=== PATIENT | male | born 1965 | race Caucasian/White ===

== ENCOUNTER 2019-10-25 22:53 | Observation (INO) | payer OTHER ==
[2019-10-25] MEDS ORDERED: SODIUM CHLORIDE 0.9% 1,000 ML IV STA ×2 (23:22)
[2019-10-25] MEDS ORDERED: METOCLOPRAMIDE 5 MG/ML 2 ML VIAL IVP STA (23:22)
[2019-10-25] MEDS ORDERED: diphenhydrAMINE 50 MG/ML 1 ML VIAL IVP STA (23:22)
[2019-10-25] MEDS ORDERED: KETOROLAC 15 MG/ML 1 ML VIAL IVP STA (23:22)
[2019-10-25 23:52] LABS: Basophils # (A) 0.1 k/uL (0-0.2); Basophils % (A) 0 %; Eosinophils % (A) 0 %; Lymphocytes # (A) 0.9 k/uL (1.0-4.8); Lymphocytes % (A) 6 %; MCH 30.8 pg (25.0-35.0); MCHC 33.5 g/dL (31.0-37.0); MCV 92.2 fL (80.0-100.0); Mean Platelet Volume 8.1; Monocytes # (A) 0.5 k/uL (0-1.0); Monocytes % (A) 3 %; Neutrophils # (A) 14.2 k/uL (1.3-7.7); Neutrophils % (A) 90 %; Platelet Count 272 k/uL (150-450); RBC 6.37 m/uL (4.30-5.90); RDW 13.1 % (11.5-15.5); WBC 15.7 k/uL (3.8-10.6)
[2019-10-26 00:01] LABS: Appearance,Urine Clear (Clear); Bilirubin,Urine Negative (Negative); Blood,Urine Trace (Negative); Color,Urine Light Yellow; Glucose,Urine (UA) Negative (Negative); Ketones,Urine 2+ (Negative); Leukocyte Esterase,Urine Negative (Negative); Nitrite,Urine Negative (Negative); Protein,Urine Negative (Negative); RBC,Urine 6 /hpf (0-5); Squamous Epithelial Cell,Urine <1 /hpf (0-4); Urobilinogen,Urine <2.0 mg/dL (<2.0); WBC,Urine 1 /hpf (0-5)
[2019-10-26 00:03] LABS: ALT 31 U/L (4-49); AST 34 U/L (17-59); African American GFR (CKD) >90 (>60 ml/min/1.73 sqM); Alkaline Phosphatase 80 U/L (38-126); Anion Gap 9 mmol/L; Blood Urea Nitrogen 9 mg/dL (9-20); Calcium 8.8 mg/dL (8.4-10.2); Carbon Dioxide 22 mmol/L (22-30); Chloride 109 mmol/L (98-107); Glucose 122 mg/dL (74-99); Non-African American GFR(CKD) >90 (>60 ml/min/1.73 sqM); Potassium 4.4 mmol/L (3.5-5.1); Sodium 140 mmol/L (137-145); Total Bilirubin 1.1 mg/dL (0.2-1.3); Total Protein 7.2 g/dL (6.3-8.2)
[2019-10-26 00:12] LABS: Specific Gravity,Urine 1.049 (1.001-1.035)
[2019-10-26 00:15] LABS: HCT 58.7 % (39.0-53.0); HGB 19.7 gm/dL (13.0-17.5)
--- NOTE | 2019-10-26 00:37 | ED ---
Abdominal Pain HPI - General Chief Complaint: Abdominal Pain Stated Complaint: abd pain Time Seen by Provider: 10/25/19 22:58 Source: patient, EMS, RN notes reviewed, old records reviewed Limitations: no limitations - History of Present Illness Initial Comments: Patient is a 54-year-old male transferred for from a [facility] with complaints of vomiting, diarrhea and diffuse abdominal pain for the past day. Patient was seen in [facility] and was noted to have elevated white blood cell count of 18.6. Hemoglobin of 21.5. Blood sugar of 202. AST 50 8T of 46. Bilirubin 1.8. Patient had a computed tomography scan of them pelvis which showed colitis. A 1.7 cm nodule in the right kidney which had increased from previous computed tomography scan. Also there is gallbladder wall appeared mildly thickened may reflect lack of distention versus motion artifact. No. Holosystolic fluid. There is one gallstone. Ultrasound was reported may be helpful. states that since receiving nausea medicine at the other hospital he's been feeling somewhat better but still complains of diffuse abdominal pain. He states it is cramping in nature. He also complaining of a mild headache. - Related Data Home Medications Medication Instructions Recorded Confirmed Omeprazole [PriLOSEC] 20 mg PO DAILY 12/18/15 12/18/15 Previous Rx's Medication Instructions Recorded HYDROcodone/APAP 10-325MG [[place] 1 tab PO Q6H PRN #20 tab 12/21/15 10-325] Sulfamethox-Tmp 800-160Mg [Bactrim 1 tab PO BID@0600,1800 #20 tab 12/21/15 DS 800-160 mg] traMADol HCl [Ultram] 100 mg PO Q6HR PRN #30 tab 12/21/15 Allergies Allergy/AdvReac Type Severity Reaction Status Date / Time flu vaccines AdvReac Rash/Hives Uncoded 10/25/19 23:00 Review of Systems ROS Statement: Those systems with pertinent positive or pertinent negative responses have been documented in the HPI. ROS Other: All systems not noted in ROS Statement are negative. Past Medical History Past Medical History: No Reported History History of Any Multi-Drug Resistant Organisms: MRSA Date of last positivie culture/infection: 12/20/15 MDRO Source:: face Past Surgical History: No Surgical Hx Reported Past Psychological History: No Psychological Hx Reported Smoking Status: Current every day smoker Past Alcohol Use History: None Reported Past Drug Use History: Marijuana - Past Family History Father History Unknown: Yes General Exam - General Exam Comments Initial Comments: 54-year-old male. Alert and oriented 3. No significant distress. Limitations: no limitations General appearance: alert Head exam: Present: atraumatic Eye exam: Present: normal appearance, PERRL, EOMI. Absent: scleral icterus, conjunctival injection, periorbital swelling ENT exam: Present: normal exam, mucous membranes moist Neck exam: Present: normal inspection. Absent: tenderness, meningismus, lymphadenopathy Respiratory exam: Present: normal lung sounds bilaterally. Absent: respiratory distress, wheezes, rales, rhonchi, stridor Cardiovascular Exam: Present: regular rate, normal rhythm, normal heart sounds. Absent: systolic murmur, diastolic murmur, rubs, gallop, clicks GI/Abdominal exam: Present: soft, tenderness (Diffuse tenderness), normal bowel sounds. Absent: distended, guarding, rebound, rigid Extremities exam: Present: normal inspection, full ROM, normal capillary refill. Absent: tenderness, pedal edema, joint swelling, calf tenderness Back exam: Present: normal inspection Course Vital Signs 10/25/19 10/25/19 22:54 23:47 Temperature 99.5 F Pulse Rate 81 72 Respiratory 18 18 Rate Blood Pressure 145/82 127/74 O2 Sat by Pulse 98 97 Oximetry Procedures - [place] Protocol (Time Out) Nurse: Meri Dumont Medical Decision Making - Medical Decision Making 54-year-old male presents with 1 day of diarrhea vomiting abdominal pain. He was a transfer from [facility]. Was found to be with leukocytosis of 18.6. A computed tomography scan showed some mild colitis. Repeat labs shows white count is now decreasing. He was given Rocephin and Flagyl already. On reevaluation he states his pain is improved after some Toradol as well as his previous IV pain medication. At this time Patient will be admitted for IV hydration, continuing Rocephin and Flagyl for colitis might possible gallbladder ultrasound in the morning for further evaluation. - Lab Data Result diagrams: 10/25/19 23:38 10/25/19 23:38 Lab Results 10/25/19 10/25/19 10/25/19 Range/Units 23:38 23:38 23:38 WBC 15.7 H (3.8-10.6) k/uL RBC 6.37 H (4.30-5.90) m/uL Hgb 19.7 H* (13.0-17.5) gm/dL Hct 58.7 H* (39.0-53.0) % MCV 92.2 (80.0-100.0) fL MCH 30.8 (25.0-35.0) pg MCHC 33.5 (31.0-37.0) g/dL RDW 13.1 (11.5-15.5) % Plt Count 272 (150-450) k/uL Neutrophils % 90 % Lymphocytes % 6 % Monocytes % 3 % Eosinophils % 0 % Basophils % 0 % Neutrophils # 14.2 H (1.3-7.7) k/uL Lymphocytes # 0.9 L (1.0-4.8) k/uL Monocytes # 0.5 (0-1.0) k/uL Eosinophils # 0.0 (0-0.7) k/uL Basophils # 0.1 (0-0.2) k/uL Sodium 140 (137-145) mmol/L Potassium 4.4 (3.5-5.1) mmol/L Chloride 109 H (98-107) mmol/L Carbon Dioxide 22 (22-30) mmol/L Anion Gap 9 mmol/L BUN 9 (9-20) mg/dL Creatinine 0.85 (0.66-1.25) mg/dL Est GFR (CKD-EPI)AfAm >90 (>60 ml/min/1.73 sqM) Est GFR (CKD-EPI)NonAf >90 (>60 ml/min/1.73 sqM) Glucose 122 H (74-99) mg/dL Calcium 8.8 (8.4-10.2) mg/dL Total Bilirubin 1.1 (0.2-1.3) mg/dL AST 34 (17-59) U/L ALT 31 (4-49) U/L Alkaline Phosphatase 80 (38-126) U/L Total Protein 7.2 (6.3-8.2) g/dL Albumin 4.0 (3.5-5.0) g/dL Urine Color Light Yellow Urine Appearance Clear (Clear) Urine pH 8.0 (5.0-8.0) Ur Specific [place] 1.049 H (1.001-1.035) Urine Protein Negative (Negative) Urine Glucose (UA) Negative (Negative) Urine Ketones 2+ H (Negative) Urine Blood Trace H (Negative) Urine Nitrite Negative (Negative) Urine Bilirubin Negative (Negative) Urine Urobilinogen <2.0 (<2.0) mg/dL Ur Leukocyte Esterase Negative (Negative) Urine RBC 6 H (0-5) /hpf Urine WBC 1 (0-5) /hpf Ur Squamous Epith Cells <1 (0-4) /hpf - Radiology Data Radiology results: report reviewed Reviewed outpatient CT and [facility]. Impression: Wall the entire colon is thickened but not glass. This appearance. Lactic lack of distention however mild diffuse colitis cannot be excluded. No abscess or free air. There is indeterminate 1.7 cm hyperdense nodule in the posterior upper right kidney with Hounsfield units measuring of 67. This is increased from 1.3cm previously. This is concerning for renal cell carcinoma. Recommended MR without and with contrast CT. The gallbladder wall appeared mildly thickened may reflect lack of distention versus motion artifact. No ruthie-coleslaw fluid. One gallstone noted. Ultrasound may be helpful to further evaluate the gallbladder. Disposition Clinical Impression: Colitis, Intractable abdominal pain Disposition: ADMITTED IP TO THIS HOSP Condition: Stable Is patient prescribed a controlled substance at d/c from ED?: No Referrals: Brandan Rosales DO [Primary Care Provider] - 1-2 days Time of Disposition: 00:37
[2019-10-26] MEDS ORDERED: NALOXONE 0.4 MG/ML 1 ML VIAL IV PRN (00:38)
[2019-10-26] MEDS ORDERED: ACETAMINOPHEN TAB 325 MG TAB PO PRN (00:38)
[2019-10-26] MEDS ORDERED: IBUPROFEN 400 MG TAB PO PRN (00:38)
[2019-10-26] MEDS ORDERED: ONDANSETRON 4 MG/2 ML VIAL IVP PRN (00:38)
[2019-10-26] MEDS: SODIUM CHLORIDE 0.9% 1,000 ML IV SCH ×3 (00:58→23:23)
[2019-10-26] MEDS: MORPHINE SULFATE 4 MG/ML SYRINGE IV PRN ×6 (02:53→22:40)
[2019-10-26] MEDS: metroNIDAZOLE-NS PMX 500 MG in SALINE 1 100ML.BAG IVPB SCH ×3 (08:54→23:23)
[2019-10-26] MEDS: KETOROLAC 15 MG/ML 1 ML VIAL IVP PRN ×2 (09:01→20:05)
--- NOTE | 2019-10-26 13:25 | P.HPIM ---
History of Present Illness 54-year-old male was transferred from [facility] after he presented there with nausea vomiting diarrhea nausea vomiting diarrhea improved patient was comparing of diffuse abdominal pain 9/10 in severity which improved with the pain medications patient cannot localize where the pain is. Although patient had a computed tomography scan of the abdomen which showed colitis along with the 1.7 cm nodule in the right kidney and the possibility of thickened gallbladder patient does have pain in the right upper quadrant as well. There was 1 gallstones evident on the CAT scan as per the report. Patient was started on some ceftriaxone and metronidazole subsequently admitted here Review of Systems REVIEW OF SYSTEMS: CONSTITUTIONAL: No fever, no malaise, no fatigue. HEENT: No recent visual problems or hearing problems. Denied any sore throat. CARDIOVASCULAR: No chest pain, orthopnea, PND, no palpitations, no syncope. PULMONARY: No shortness of breath, no cough, no hemoptysis. GASTROINTESTINAL: As mentioned in HPI NEUROLOGICAL: No headaches, no weakness, no numbness. HEMATOLOGICAL: Denies any bleeding or petechiae. GENITOURINARY: Denies any burning micturition, frequency, or urgency. MUSCULOSKELETAL/RHEUMATOLOGICAL: Denies any joint pain, swelling, or any muscle pain. ENDOCRINE: Denies any polyuria or polydipsia. The rest of the 14-point review of systems is negative. Past Medical History Past Medical History: No Reported History History of Any Multi-Drug Resistant Organisms: MRSA Date of last positivie culture/infection: 12/20/15 MDRO Source:: face Past Surgical History: No Surgical Hx Reported Past Psychological History: No Psychological Hx Reported Smoking Status: Current every day smoker Past Alcohol Use History: None Reported Past Drug Use History: Marijuana - Past Family History Father History Unknown: Yes Medications and Allergies Home Medications Medication Instructions Recorded Confirmed Type No Known Home Medications 10/26/19 10/26/19 History Allergies Allergy/AdvReac Type Severity Reaction Status Date / Time flu vaccines AdvReac Rash/Hives Uncoded 10/26/19 09:12 Physical Exam Vitals: Vital Signs Temp Pulse Pulse Resp BP BP Pulse Ox 10/26/19 08:34 97.8 F 60 104/54 92 L 10/26/19 02:00 98.3 F 64 17 98 10/26/19 00:54 68 18 123/70 96 10/25/19 23:47 72 18 127/74 97 10/25/19 22:54 99.5 F 81 18 145/82 98 Intake and Output 10/25/19 10/26/19 10/26/19 22:59 06:59 14:59 Other: # Voids 1 Weight 65.771 kg 65.771 kg PHYSICAL EXAMINATION: GENERAL: The patient is alert and oriented x3, not in any acute distress. Well developed, well nourished. HEENT: Pupils are round and equally reacting to light. EOMI. No scleral icterus. No conjunctival pallor. Normocephalic, atraumatic. No pharyngeal erythema. No thyromegaly. CARDIOVASCULAR: S1 and S2 present. No murmurs, rubs, or gallops. PULMONARY: Fairly good air entry mild expiratory wheezing ABDOMEN: Soft, nontender, nondistended, normoactive bowel sounds. No palpable organomegaly. MUSCULOSKELETAL: No joint swelling or deformity. EXTREMITIES: No cyanosis, clubbing, or pedal edema. NEUROLOGICAL: Gross neurological examination did not reveal any focal deficits. SKIN: No rashes. Results CBC & Chem 7: 10/25/19 23:38 10/25/19 23:38 Labs: Abnormal Lab Results - Last 24 Hours (Table) 10/25/19 10/25/19 10/25/19 Range/Units 23:38 23:38 23:38 WBC 15.7 H (3.8-10.6) k/uL RBC 6.37 H (4.30-5.90) m/uL Hgb 19.7 H* (13.0-17.5) gm/dL Hct 58.7 H* (39.0-53.0) % Neutrophils # 14.2 H (1.3-7.7) k/uL Lymphocytes # 0.9 L (1.0-4.8) k/uL Chloride 109 H (98-107) mmol/L Glucose 122 H (74-99) mg/dL Ur Specific [place] 1.049 H (1.001-1.035) Urine Ketones 2+ H (Negative) Urine Blood Trace H (Negative) Urine RBC 6 H (0-5) /hpf Thrombosis Risk Factor Assmnt - Choose All That Apply Each Factor Represents 1 point: Age 41-60 years Other Risk Factors: No Thrombosis Risk Factor Assessment Total Risk Factor Score: 1 Thrombosis Risk Factor Assessment Level: Low Risk Assessment and Plan Plan: -Possible colitis for which patient was on antibiotics which will be continued -Possibly of cholelithiasis and cholecystitis and surgery was consulted and ultrasound of the right upper quadrant. -COPD with possible mild acute exacerbation nicotine cessation counseling was provided and patient will be started on inhaled steroids inhalational treatments -Continued nicotine use: Counseling was provided -GI prophylaxis with Protonix
[2019-10-26] MEDS: PANTOPRAZOLE 40 MG/10 ML VIAL IVP SCH (14:59)
[2019-10-26] MEDS: IPRATROPIUM-ALBUTEROL 3 ML NEB INHALATION PRN (15:35)
--- NOTE | 2019-10-26 15:37 | P.GSCN ---
History of Present Illness Consult date: 10/26/19 Reason for Consult: Abdominal pain History of present illness: This a 54-year-old male was admitted to the medical service. Patient presented through the emergency room with abdominal pain. Apparently been treated for colitis. Patient states his pain is improved. Patient had a ultrasound performed which showed a 1 cm gallstone in the gallbladder. Past Medical History Past Medical History: No Reported History History of Any Multi-Drug Resistant Organisms: MRSA Year Discovered:: 12/20/15 MDRO Source:: face Past Surgical History: No Surgical Hx Reported Past Psychological History: No Psychological Hx Reported Smoking Status: Current every day smoker Past Alcohol Use History: None Reported Past Drug Use History: Marijuana - Past Family History Father History Unknown: Yes Medications and Allergies Home Medications Medication Instructions Recorded Confirmed Type No Known Home Medications 10/26/19 10/26/19 History Allergies Allergy/AdvReac Type Severity Reaction Status Date / Time flu vaccines AdvReac Rash/Hives Uncoded 10/26/19 09:12 Surgical - Exam Vital Signs Temp Pulse Resp BP Pulse Ox 99.5 F 81 18 145/82 98 10/25/19 22:54 10/25/19 22:54 10/25/19 22:54 10/25/19 22:54 10/25/19 22:54 - General well developed, well nourished, no distress - Eyes PERRL - ENT normal pinna - Neck no masses - Respiratory normal expansion - Cardiovascular Rhythm: regular - Abdomen Abdomen: soft, non tender Results - Labs 10/25/19 23:38 10/25/19 23:38 Abnormal Lab Results - Last 24 Hours (Table) 10/25/19 10/25/19 10/25/19 Range/Units 23:38 23:38 23:38 WBC 15.7 H (3.8-10.6) k/uL RBC 6.37 H (4.30-5.90) m/uL Hgb 19.7 H* (13.0-17.5) gm/dL Hct 58.7 H* (39.0-53.0) % Neutrophils # 14.2 H (1.3-7.7) k/uL Lymphocytes # 0.9 L (1.0-4.8) k/uL Chloride 109 H (98-107) mmol/L Glucose 122 H (74-99) mg/dL Ur Specific [place] 1.049 H (1.001-1.035) Urine Ketones 2+ H (Negative) Urine Blood Trace H (Negative) Urine RBC 6 H (0-5) /hpf Diabetes panel 10/25/19 Range/Units 23:38 Sodium 140 (137-145) mmol/L Potassium 4.4 (3.5-5.1) mmol/L Chloride 109 H (98-107) mmol/L Carbon Dioxide 22 (22-30) mmol/L BUN 9 (9-20) mg/dL Creatinine 0.85 (0.66-1.25) mg/dL Glucose 122 H (74-99) mg/dL Calcium 8.8 (8.4-10.2) mg/dL AST 34 (17-59) U/L ALT 31 (4-49) U/L Alkaline Phosphatase 80 (38-126) U/L Total Protein 7.2 (6.3-8.2) g/dL Albumin 4.0 (3.5-5.0) g/dL Calcium panel 10/25/19 Range/Units 23:38 Calcium 8.8 (8.4-10.2) mg/dL Albumin 4.0 (3.5-5.0) g/dL Pituitary panel 10/25/19 Range/Units 23:38 Sodium 140 (137-145) mmol/L Potassium 4.4 (3.5-5.1) mmol/L Chloride 109 H (98-107) mmol/L Carbon Dioxide 22 (22-30) mmol/L BUN 9 (9-20) mg/dL Creatinine 0.85 (0.66-1.25) mg/dL Glucose 122 H (74-99) mg/dL Calcium 8.8 (8.4-10.2) mg/dL Adrenal panel 10/25/19 Range/Units 23:38 Sodium 140 (137-145) mmol/L Potassium 4.4 (3.5-5.1) mmol/L Chloride 109 H (98-107) mmol/L Carbon Dioxide 22 (22-30) mmol/L BUN 9 (9-20) mg/dL Creatinine 0.85 (0.66-1.25) mg/dL Glucose 122 H (74-99) mg/dL Calcium 8.8 (8.4-10.2) mg/dL Total Bilirubin 1.1 (0.2-1.3) mg/dL AST 34 (17-59) U/L ALT 31 (4-49) U/L Alkaline Phosphatase 80 (38-126) U/L Total Protein 7.2 (6.3-8.2) g/dL Albumin 4.0 (3.5-5.0) g/dL Assessment and Plan Assessment: History of colitis. Patient will be observed currently. We'll plan for outpatient laparoscopic cholecystectomy.
--- NOTE | 2019-10-26 16:08 | US ---
EXAMINATION TYPE: US gallbladder DATE OF EXAM: 10/26/2019 COMPARISON: CT 10/25/19 CLINICAL HISTORY: 54-year-old male Cholecystitis. TECHNIQUE: Multiple sonographic images of the right upper quadrant are obtained. FINDINGS: EXAM MEASUREMENTS: Liver Length: 14.8 cm Gallbladder Wall: 0.2 cm CBD: 0.4 cm Right Kidney: 11.9 x 5.9 x 5.5 cm Pancreas: Only a small portion of the pancreatic neck is visualized and shows no gross abnormality. Remainder is obscured by bowel gas shadowing. Liver: No focal lesion. Gallbladder: with a large 2.0 cm shadowing gallstone. There is no gallbladder hydrops, wall thickeni ng, or surrounding fluid seen. Evidence for sonographic Allen's sign: Yes CBD: wnl Right Kidney: No hydronephrosis or masses seen IMPRESSION: 1. Equivocal for cholecystitis given a large 2.0 cm gallstone and positive sonographic Allen's sign. However, there is no significant wall thickening or gallbladder hydrops. HIDA scan if clinically ind icated. 2. No biliary ductal dilatation.
[2019-10-26] MEDS: BUDESONIDE 0.5 MG/2 ML NEBU INHALATION SCH (19:47)
[2019-10-27] MEDS: MORPHINE SULFATE 4 MG/ML SYRINGE IV PRN ×4 (02:21→13:22)
[2019-10-27] MEDS: SODIUM CHLORIDE 0.9% 1,000 ML IV SCH (06:55)
[2019-10-27] MEDS: IPRATROPIUM-ALBUTEROL 3 ML NEB INHALATION PRN ×2 (07:40→11:58)
[2019-10-27] MEDS: BUDESONIDE 0.5 MG/2 ML NEBU INHALATION SCH (07:40)
[2019-10-27 08:32] VITALS: BP 118/64; RESP 16; TEMP 97.8
[2019-10-27] MEDS: PANTOPRAZOLE 40 MG/10 ML VIAL IVP SCH (08:38)
[2019-10-27] MEDS: metroNIDAZOLE-NS PMX 500 MG in SALINE 1 100ML.BAG IVPB SCH (09:25)
--- NOTE | 2019-10-27 10:55 | P.PN ---
Subjective Progress Note Date: 10/27/19 CHIEF COMPLAINT: Abdominal pain HISTORY OF PRESENT ILLNESS: Patient is currently hospitalized for colitis. He remains on IV antibiotics. He still reporting diffuse abdominal pain. He did have an ultrasound that showed a gallstone in the gallbladder. He denies any nausea or vomiting. He reports bowel movements. Afebrile. He is tolerating low-fat diet. PHYSICAL EXAM: VITAL SIGNS: Reviewed. GENERAL: Well-developed in no acute distress. HEENT: No sclera icterus. Extraocular movements grossly intact. Moist buccal mucosa. Head is atraumatic, normocephalic. ABDOMEN: Soft. Nondistended. Tenderness right upper quadrant and right lower abdomen NEUROLOGIC: Alert and oriented. Cranial nerves II through XII grossly intact. ASSESSMENT: 1. Acute colitis 2. Cholelithiasis PLAN: -We will continue to observe patient -Continue antibiotics for colitis -Planning for outpatient laparoscopic cholecystectomy Physician [employer] Manager note has been reviewed by physician. Signing provider agrees with the documented findings, assessment, and plan of care. Objective - Vital Signs Vital signs: Vital Signs Temp 97.8 F 10/27/19 08:30 Pulse 74 10/27/19 08:30 Resp 16 10/27/19 08:30 BP 118/64 10/27/19 08:30 Pulse Ox 94 L 10/27/19 08:30 Intake & Output 10/26/19 10/27/19 10/27/19 18:59 06:59 18:59 Other: Voiding Method Toilet Toilet # Voids 2 1 - Labs CBC & Chem 7: 10/25/19 23:38 10/25/19 23:38
[2019-10-27 12:13] VITALS: PULSE 78
[2019-10-27 13:07] LABS: African American GFR (CKD) >90 (>60 ml/min/1.73 sqM); Anion Gap 6 mmol/L; Blood Urea Nitrogen 9 mg/dL (9-20); Calcium 8.1 mg/dL (8.4-10.2); Carbon Dioxide 24 mmol/L (22-30); Chloride 108 mmol/L (98-107); Glucose 116 mg/dL (74-99); Non-African American GFR(CKD) >90 (>60 ml/min/1.73 sqM); Potassium 3.2 mmol/L (3.5-5.1); Sodium 138 mmol/L (137-145)
[2019-10-27 13:10] LABS: HCT 51.3 % (39.0-53.0); MCH 29.9 pg (25.0-35.0); MCHC 32.4 g/dL (31.0-37.0); MCV 92.3 fL (80.0-100.0); Mean Platelet Volume 7.5; Platelet Count 237 k/uL (150-450); RBC 5.55 m/uL (4.30-5.90); RDW 13.4 % (11.5-15.5); WBC 12.9 k/uL (3.8-10.6)
[2019-10-27 13:18] LABS: HGB 16.6 gm/dL (13.0-17.5)
[2019-10-27] MEDS ORDERED: POTASSIUM CHLORIDE ER 20 MEQ TAB.ER PO STA (14:07)
--- NOTE | 2019-10-27 14:13 | P.DS ---
Providers Date of admission: 10/26/19 00:44 Attending physician: Omid Waldron Consults: 10/26/19 12:57 Consult Physician Routine Consulting Provider: Osvaldo Ramos Consult Reason/Comments: Abdominal Pain, Cholelithiasis Do you want consulting provider notified?: Yes Primary care physician: Brandan Crain [facility] Course: 54-year-old male was transferred from [facility] after he presented there with nausea vomiting diarrhea nausea vomiting diarrhea improved patient was comparing of diffuse abdominal pain 9/10 in severity which improved with the pain medications patient cannot localize where the pain is. Although patient had a computed tomography scan of the abdomen which showed colitis along with the 1.7 cm nodule in the right kidney and the possibility of thickened gallbladder patient does have pain in the right upper quadrant as well. There was 1 gallstones evident on the CAT scan as per the report. Patient was started on some ceftriaxone and metronidazole subsequently admitted here. 10/27/2019 She is still having some abdominal pain yesterday surgery evaluated the patient patient the will follow with general surgery for outpatient cholecystectomy patient is able to tolerate diet pain although improved abdomen is soft patient will be discharged on Ceftin and the metronidazole patient was severely dehydrated which improved now patient was hemoconcentrated hemoglobin normalized white blood cell count has come down PHYSICAL EXAMINATION: GENERAL: The patient is alert and oriented x3, not in any acute distress. Well developed, well nourished. HEENT: Pupils are round and equally reacting to light. EOMI. No scleral icterus. No conjunctival pallor. Normocephalic, atraumatic. No pharyngeal erythema. No thyromegaly. CARDIOVASCULAR: S1 and S2 present. No murmurs, rubs, or gallops. PULMONARY: Chest is clear to auscultation, no wheezing or crackles. ABDOMEN: Soft, nontender, nondistended, normoactive bowel sounds. No palpable organomegaly. MUSCULOSKELETAL: No joint swelling or deformity. EXTREMITIES: No cyanosis, clubbing, or pedal edema. NEUROLOGICAL: Gross neurological examination did not reveal any focal deficits. SKIN: No rashes. -Possible infectious colitis for which patient will be discharged on antibiotics -Severe dehydration improved -Elevated hematocrit secondary to dehydration and intravascular depletion -Cholelithiasis: Neurosurgery valid the patient follow-up as an outpatient for outpatient cholecystectomy -Nicotine abuse: Counseling was provided Patient Condition at Discharge: Stable Plan - Discharge Summary New Discharge Prescriptions: New Cefuroxime Axetil [Ceftin] 500 mg PO BID 7 Days #14 tab metroNIDAZOLE [Flagyl] 500 mg PO TID #21 tab HYDROcodone/APAP 7.5-325MG [[place] 7.5-325] 1 tab PO Q4H PRN #18 tab PRN Reason: Pain traMADol HCL [Ultram] 50 mg PO Q6HR PRN 3 Days #12 tab PRN Reason: Pain Discharge Medication List Cefuroxime Axetil [Ceftin] 500 mg PO BID 7 Days #14 tab 10/27/19 [Rx] HYDROcodone/APAP 7.5-325MG [[place] 7.5-325] 1 tab PO Q4H PRN #18 tab 10/27/19 [Rx] metroNIDAZOLE [Flagyl] 500 mg PO TID #21 tab 10/27/19 [Rx] traMADol HCL [Ultram] 50 mg PO Q6HR PRN 3 Days #12 tab 10/27/19 [Rx] Follow up Appointment(s)/Referral(s): Brandan Rosales DO [Primary Care Provider] - 10/31/19 10:30 am Osvaldo Ramos MD [STAFF PHYSICIAN] - 11/03/19 4:00 pm Patient Instructions/Handouts: Gallstones (DC), Colitis (ED), Laparoscopic Cholecystectomy (DC) Discharge Disposition: HOME SELF-CARE
== END 2019-10-27 14:20 | disposition home or self-care (01) ==
LOC: EC 22:53 → 1SOBS 10-26 00:44
PROVIDERS: ADMIT Hospitalist; ATTEND Hospitalist
DX: K80.20 Calculus of gallbladder without cholecystitis without obstruction (principal); R10.11 Right upper quadrant pain; E86.0 Dehydration; F17.200 Nicotine dependence, unspecified, uncomplicated; K52.9 Noninfective gastroenteritis and colitis, unspecified
CPT/HCPCS: 96365; 96366 ×2; 96367; 96375 ×2; 96376 ×2; 96361; 99285; 36415; 94640 ×2; 80053; 80048; 85025; 85027; 81001; 76705; G0378 ×2; J2270 ×2; J1200; J2765; J0696 ×2; J1885 ×2; C9113 ×2